=== PATIENT | male | born 2000 | race Caucasian/White ===

== ENCOUNTER → 2024-08-05 | Outpatient (CLI) | payer BC ==
[2024-08-05 16:02] VITALS: BP 155/94; PULSE 97; RESP 16; TEMP 98.5
--- NOTE | 2024-08-05 18:31 | P.SLEEP ---
History of Present Illness DATE: 08/05/2024 CONSULTATION/NEW PATIENT EVALUATION HISTORY OF PRESENT ILLNESS/SLEEP-WAKE EVALUATION: 24-year-old gentleman had been evaluated in the sleep center for obstructive sleep apnea hypopnea syndrome. Patient had been diagnosed with obstructive sleep apnea in another institution about 1 year ago by home sleep apnea test. Patient was started on treatment with AutoPap. Patient using AutoPap equipment presently every night, but still snore and has awakenings from sleep and sleepwalking. SLEEP SCHEDULE: Usually sleep schedule from 10 PM to 4 AM on working days and from 1012 until 911 AM on weekend. FALLING ASLEEP: No problems with falling asleep. DURING SLEEP: Even while using CPAP patient snores and has episodes of sleepwalking. No history of hypnogogical hallucinations, sleep paralysis, or cataplexy. DURING THE DAY/WAKE STATE: In the morning patient wake up tired. [place] sleepiness scale is 7. Usually patient does not take additional naps. PAST MEDICAL HISTORY: Asthma, headaches. PAST SURGICAL HISTORY: Left ankle surgery and right shoulder surgery. MEDICATIONS: None at the present time. SOCIAL HISTORY: Please see below. FAMILY HISTORY: Hypertension, sleep apnea, asthma. REVIEW OF SYSTEMS: Snoring while using CPAP. No fevers. No double vision. No recent chest pain. No shortness of breath. No abdominal pain. No bleeding episodes. No blood in urine. No seizure episodes. PHYSICAL EXAMINATION: GENERAL: A pleasant patient without any distress. VITAL SIGNS: Please see below, weight 302.4 pounds, BMI 44.3. HEENT: PERRLA, EOMI. Evaluation of oropharynx showed tongue protrudes midline, low position of soft palate Mallampati 4. NECK: Supple. No JVD. Thyroid is not palpable. 19-3/4 inches in circumference. LUNGS: Clear to percussion and to auscultation. Good air exchange. No wheezing or rhonchi. HEART: S1, S2 regular. No murmurs, gallops or rubs. ABDOMEN: Soft and nontender. Bowel sounds are present. No organomegaly appreciated. EXTREMITIES: No clubbing or cyanosis. MASS COMMUNICATIONS PROFESSOR: Awake, alert, and oriented x3. Cranial nerves 2 to 7 intact. There is no fasciculation or atrophy noted. No focal deficits observed. ASSESSMENT: 1. Obstructive sleep apnea hypopnea syndrome diagnosed by results of home sleep apnea test in another institution 1 year ago. Presently patient demonstrated good compliance with treatment 93% of nights and 83% for more than 4 hours, but still snores with CPAP. Extremely low position of soft palate Mallampati 4, extremely wide neck 19 and three-quarter inches in circumference. Obstructive sleep apnea hypopnea syndrome. 2. Obesity, BMI 44.3. 3. History of asthma. PLAN: 1. We will get results of home sleep apnea test which was done in another institution, may expectation is severe sleep apnea. 2. CPAP/BiPAP titration and to find the best mask for correction of respiratory abnormalities during sleep. 3. Preferable position during sleep on the side. 4. No driving if patient feels any sleepiness. Patient is aware of civil and criminal liability for unsafe driving. 5. Sleep hygiene with regular sleep time for at least 7.5-8 hours. 6. Watching and losing weight. Thank you very much for referring this patient for consultation. Sincerely, Raúl Slaughter MD, PhD, FAASM. Diplomat of [place] [employer], Sleep Medicine Board by [employer] Patch Finisher [facility] [place] cc: Severino Palafox DO, Jaki Arias PA-C Past Medical History Past Medical History: Asthma, Sleep Apnea/CPAP/BIPAP Additional Past Medical History / Comment(s): Sinus headaches, snoring History of Any Multi-Drug Resistant Organisms: None Reported Past Surgical History: Orthopedic Surgery Additional Past Surgical History / Comment(s): L ANKLE - PINS AND SCREWS IN 2014, R SHOULDER - POOPED OUT/TORN LABRUM Past Psychological History: ADD/ADHD Additional Psychological History / Comment(s): NEVER DIAGNOSED Smoking Status: Former smoker Past Alcohol Use History: Occasional Past Drug Use History: None Reported - Past Family History Mother Family Medical History: Asthma, Hypertension, Sleep Apnea/CPAP/BIPAP Additional Family Medical History / Comment(s): SINUS HEADACHES, SNORING Father Additional Family Medical History / Comment(s): SNORNG, HEADACHES (MIGRAINES) Physical Exam Vitals: Vital Signs Temp Pulse Resp BP Pulse Ox 08/05/24 16:00 98.5 F 97 16 155/94 97 Intake and Output 08/05/24 08/05/24 08/05/24 06:59 14:59 22:59 Other: Weight 137.098 kg Sleep Note - Sleep Data ESS Total: 7 - Sleep Note Sleep Note: Temperature: 98.5 F Pulse Rate: 97 Respiratory Rate: 16 Blood Pressure: 155/94 SpO2: 97 Height: 5 ft 9.2 in Weight: 137.098 kg BMI: Neck Circumference: 19.7
== END ==
LOC: 3 N SLEEP 15:22
PROVIDERS: ATTEND Internal Medicine
DX: G47.33 Obstructive sleep apnea (adult) (pediatric) (principal); E66.9 Obesity, unspecified; Z87.891 Personal history of nicotine dependence; Z68.41 Body mass index [BMI] 40.0-44.9, adult; Z87.09 Personal history of other diseases of the respiratory system
CPT/HCPCS: 99202

== ENCOUNTER 2024-09-16 19:47 | Outpatient (CLI) | payer BC ==
--- NOTE | 2024-09-22 11:48 | P.PCN ---
Description of Procedure: CLINICAL: Titration with positive air pressure has been done for correction of respiratory abnormalities during sleep. DESCRIPTION OF PROCEDURE: The standard montage for clinical polysomnography included the electroencephalogram, the electrocardiogram, the mentalis surface electromyography and Lead II cardiography. The respiratory battery consisted of measurements of nasal /buccal air flow, pressure transducer measurements from the nose, thoracic and /or abdominal effort and intercostal surface electromyography. Video monitoring has been done to check for any parasomnia events. Nocturnal oxyhemoglobin saturations were obtained by finger oximetry. Step-polk titration with positive airway pressure was utilized to control respiratory events. Raw data of sleep recording has been reviewed and is adequate. RESULTS: Sleep efficiency was normal 93.5%. Latency to sleep onset was normal at 12.5 minutes.]. Sleep architecture showed stage N1 was short 1.0%, Delta sleep was normal 19.1%, REM sleep was not high range 33.7%. Heart rate was minimum 58 BPM, maximum 68 BPM, average 62 BPM. EMG showed 4.9 periodic limb movements per hour with 1.4 micriarousals per hour. PAP titration have been done with CPAP up to the pressure 13 cm H2O. The best results were at the pressure 13 cm H2O. Apnea hypopnea index reduced to 1.1. IMPRESSION: 1. Obstructive sleep apnea hypopnea syndrome on controle with PAP treatment. 2. No significant periodic limb movements have been documented. Please see other impressions from consultation. PLAN: 1. The patient will have treatment with positive air pressure equipment with the level of pressure AutoPap 513 cm H2O and should use it every night for the whole night. 2. Watching and losing weight. 3. Sleep hygiene with regular time in bed for at least 8 hours. 4. No driving if feeling any sleepiness. 5. I will see the patient for follow up visit to explain the results of the test, recommendations, check compliance with treatment and make any necessary adjustment related to mask fitting, pressure and humidification. Thank you very much for allowing me to participate in the management of your patient. Sincerely, Raúl Slaughter MD, PhD, FAASM Diplomat of [place] [employer] Sleep Medicine Board of [place] [employer] Psychology Teacher of [facility] [place] cc: Severino Palafox DO
== END 2024-09-17 05:00 | disposition home or self-care (01) ==
LOC: 3 N SLEEP 19:47
PROVIDERS: ATTEND Internal Medicine
DX: G47.33 Obstructive sleep apnea (adult) (pediatric) (principal); Z99.89 Dependence on other enabling machines and devices
CPT/HCPCS: 95811

== ENCOUNTER → 2024-11-18 | Outpatient (CLI) | payer BC ==
[2024-11-18 16:35] VITALS: BP 142/86; PULSE 82; RESP 16; TEMP 97.9
--- NOTE | 2024-11-18 16:59 | P.PROGSL ---
Subjective DATE: 11/18/2024 FOLLOW UP VISIT. Patient with obstructive sleep apnea hypopnea syndrome return to sleep center for follow-up visit. Information from previous visit have been reviewed. Patient is using PAP equipment every night for the whole night, getting PAP supplies in time. The patient does not have significant problems with the mask, PAP unit and humidification. [place] sleepiness scale is 2, which is normal. I checked information from PAP unit. PAP unit pressure 5-17, average 10.9 cm H2O. Usage is 80% for more then 4 hours, average 0.7 hours per night. Leak is high 73 l/m, which is in acceptable range. Apnea Hypopnea Index is 1.2 for the last night and 5.8 average for the last year, which is normal. MEDICATIONS have been reviewed, please see below. During physical exam: GENERAL: A pleasant patient without any distress. VITAL SIGNS: Please see below, weight is 298 lbs. HEENT: PERRLA, EOMI.low position of soft palate, Mallapati 4. NECK: Supple. No JVD. LUNGS: Clear to percussion and to auscultation. Good air exchange. No wheezing or rhonchi. HEART: S1, S2 regular. ABDOMEN: Soft and nontender. Slightly obese EXTREMITIES: No clubbing or cyanosis. BENEFITS SALES CONSULTANT: Awake, alert, and oriented x3. No focal deficit. Impressions: 1. Obstructive sleep apnea-hypopnea syndrome. Patient demonstrated great compliance with treatment, benefiting from treatment. 2. Obesity, BMI 42.7. 3. History of asthma. Plan: 1. Continue using PAP equipment every night for the whole night. 2. Sleep hygiene with regular time in bed for at least 7.5-8 hours 3. PAP unit should stay lower then position of the head. 4. Advised patient to remove all remaining water from humidifier canister daily and make it dry after each usage. Refill canister with fresh distilled water before each usage. 5. Watching weight. 6. Precautions related to driving. No driving if feel any sleepiness. 7. I will maintain prescription for PAP supplies including mask, tube, filters. 8. Follow up visit in 8 months or earlier if patient has any problems. Thank you very much for allowing me to participate in the management of your patient. Raúl Slaughter MD, PhD, FAASM. Diplomat of [place], Sleep Medicine Board by [place] Pediatric Critical Care Nurse of [facility] [place] Objective - Vital Signs Vital Signs: Vital Signs Temp 97.9 F 11/18/24 16:33 Pulse 82 11/18/24 16:33 Resp 16 11/18/24 16:33 BP 142/86 11/18/24 16:33 Pulse Ox 98 11/18/24 16:33 FiO2
== END ==
LOC: 3 N SLEEP 16:21
PROVIDERS: ATTEND Internal Medicine
DX: G47.33 Obstructive sleep apnea (adult) (pediatric) (principal); E66.9 Obesity, unspecified; Z68.41 Body mass index [BMI] 40.0-44.9, adult; Z87.09 Personal history of other diseases of the respiratory system
CPT/HCPCS: 99212